=== PATIENT | female | born 1965 | race African-American/Black ===

== ENCOUNTER 2023-12-04 17:32 | Emergency (ER) | payer OTHER, SELFPAY ==
[2023-12-04 17:37] VITALS: BP 183/107
[2023-12-04 17:51] LABS: % Basophils 0.5 % (0-2); % Eosinophils 1.4 % (0-6); % Immature Granulocytes 0.2 % (0-0.5); % Lymphocytes 50.8 % (20.5-51.1); % Monocytes 4.8 % (1.7-9.3); % Neutrophils 42.3 % (42.2-75.2); Absolute Eosinophils 0.1 10^3/uL (0-0.7); Absolute Lymphocytes 3.3 10^3/uL (1.2-3.4); Absolute Monocytes 0.3 10^3/uL (0.1-0.6); Absolute Neutrophils 2.8 10^3/uL (1.4-6.5); Hematocrit 37.7 % (37.0-47.0); Mean Corp Hgb Conc. 34.5 g/dL (33.0-37.0); Mean Corpuscular Hgb 29.4 pg (27.0-31.0); Mean Corpuscular Volume 85.3 fL (81.0-99.0); Mean Platelet Volume 9.1 fL (7.4-10.4); Nucleated Red Blood Cells % 0 %; Platelet Count 333 10^3/uL (130-400); Red Blood Cell Count 4.42 10^6/uL (4.20-5.40); Red Cell Dist. Width 12.5 % (11.5-14.5); White Blood Cell Count 6.5 10^3/uL (4.8-10.8)
[2023-12-04 18:10] LABS: ALT (SGPT) 45 U/L (0-35); AST (SGOT) 63 U/L (14-36); Albumin 4.7 g/dl (3.5-5.0); Alkaline Phosphatase 88 U/L (38-126); Blood Urea Nitrogen 16 mg/dl (7-17); Calcium 9.9 mg/dl (8.4-10.2); Carbon Dioxide 31 mmol/L (22-30); Chloride 101 mmol/L (98-107); Glucose 99 mg/dl (70-99); Potassium 4.5 mmol/L (3.5-5.1); Sodium 138 mmol/L (135-145); Total Bilirubin 0.5 mg/dl (0.2-1.3); Total Protein 8.1 g/dl (6.3-8.2); eGFR > 60.00
[2023-12-04 18:15] LABS: Troponin I < 0.012 ng/ml
[2023-12-04 22:12] VITALS: BP 167/79
[2023-12-04 22:38] LABS: Troponin I < 0.012 ng/ml
--- NOTE | 2023-12-04 23:40 | ED.GENMED ---
History of Present Illness
General
Chief Complaint: Chest Pain
Source: patient and spouse
Exam Limitations: none
Time Seen by Provider: 12/04/23 20:05
Nursing documentation reviewed up to this point in time: agreed with
Travel History
Have you had any contact with someone who has COVID-19?: No
Do you have any symptoms of coronavirus? Fever > 100 degrees, chills, cough, shortness of breath, sore throat, loss of taste or smell, muscle aches, or headache?: No
History of Present Illness
History of Present Illness:
58-year-old female past medical history of GERD presenting to the emergency department today with concerns of a few weeks of intermittent chest discomfort in the central chest described as achy and pressure with some mild shortness of breath last
for few minutes at a time once or twice a day. Denies vomiting denies diaphoresis recent illness.
Review of Systems
Review of Systems
Allergies reviewed?: Yes
All Other Systems: ROS reviewed and negative except as documented in HPI and ROS
Phy Exam
Physical Exam
Physical Exam:
GENERAL: Alert , in no apparent distress
EYE: pupils equal and reactive
NECK: Supple, no significant adenopathy.
ENT: o/p clr, mmm.
CARDIAC: Regular rate and rhythm .
LUNGS: Clear breath sounds bilaterally, no acute respiratory distress, no wheezes/rales/rhonchi
ABDOMEN: Soft, without focal tenderness, no r/g, no cvat
NEUROLOGICAL: Alert and oriented, no focal neuro deficits
SKIN: Warm and dry, skin intact.
MUSCULOSKELETAL: No edema, well perfused.
PSYCH: Normal and appropriate interaction.
Scores
Heart Score for Chest Pain Patients
STEMI patient?: No
History: Slightly or Non-Suspicious
ECG: Normal
Age: >45 - <65 years
Risk Factors: No Risk Factors
Troponin: </= Normal Limit
Heart Score for Chest Pain Patients: 1
Heart Score Risk: 2.5% MACE over next 6 weeks
Course
Orders/Labs/Results
Orders:
Orders
12/04/23 17:35
Electrocardiogram (*1) Urgent
Reason for Study: Chest Pain
Electrocardiogram (*1) Urgent
Reason for Study: Chest Pain
12/04/23 17:36
EKG- Treatment ONCE
12/04/23 17:45
Complete Blood Count/With Diff Urgent
Troponin I Urgent
12/04/23 17:46
CMP [Comprehensive Metabolic Panel] Urgent
12/04/23 20:18
Chest [CR Chest - 2 Views ] Urgent
Comment:
Reason For Exam: cp
12/04/23 21:27
EKG [Electrocardiogram (*1)] Urgent
Reason for Study: Chest Pain
Other Reason for Exam: repeat
EKG- Treatment ONCE
12/04/23 22:02
Troponin I Urgent
Abnormal Lab Results
12/04/23
17:46
Carbon Dioxide 31 H mmol/L
(22-30)
AST 63 H U/L
(14-36)
ALT 45 H U/L
(0-35)
12/04/23 17:45
12/04/23 17:46
Vital Signs
Initial and Last Documented VS:
Initial Vital Signs
Temp Pulse Resp BP Pulse Ox
98.3 F 89 16 183/107 97
12/04/23 17:37 12/04/23 17:37 12/04/23 17:37 12/04/23 17:37 12/04/23 17:37
Last Documented Vital Signs
Temp Pulse Resp BP Pulse Ox
98.3 F 81 18 167/79 99
12/04/23 17:37 12/04/23 22:12 12/04/23 22:12 12/04/23 22:12 12/04/23 22:12
MDM/Problems Addressed
MDM/Problems Addressed:
58-year-old female presenting to the emergency department today with concerns of intermittent chest discomfort over the past few weeks. On arrival her blood pressure was elevated otherwise vital signs are normal. Blood pressure improving without
specific treatment. Otherwise labs here unremarkable troponin negative twice as well as EKG unchanged throughout ER stay. Nonischemic no arrhythmia. Chest x-ray without emergent findings. Patient very low risk for ACS no specific risk factors
for PE Wells score low. Otherwise stable for outpatient follow-up will follow-up close with cardiology as well as GI. Return precautions given.
*Critical Care Note
Total Time (30-74mins, 75-104mins- exclusive of procedures): Not Applicable
ED Attending Note
-
Portions of this chart may have been created with voice recognition software.� Occasional wrong word or��sound alike� substitutions may have occurred due to the inherent limitations of voice recognition software.
Discharge Plan
Departure
Patient Disposition: Home (Routine Discharge)
Date of Disposition: 12/04/23
Time of Disposition: 23:42
Patient with high blood pressure during this ER visit?: No
Condition: Good
Covid-19: Not Applicable
Discharge Problem:
Chest pain
Instructions: Chest Pain CBC Follow Up
Referrals:
Lisseth Villatoro MD [Family Provider] -
Lesley Clifford MD [Active] - Follow up in 5-7 days
Activity Restrictions/Additional Instructions:
You came to the emergency department today with concerns of chest discomfort. Here you had a reassuring evaluation. Please follow closely with cardiology. Return to the emergency department for any worsening, new or concerning symptoms.
Interventions
Interventions:
*Risk Screen - Suicide Last Done: 12/04/23 19:46
*General Assessment Last Done: 12/04/23 19:46
*Neglect/Abuse Screening Last Done: 12/04/23 19:46
ED- Fall Risk Assessment Last Done: 12/04/23 19:47
*ED COVID-19 Vaccine History Last Done: 12/04/23 17:37
ED- Cardiac Assessment Last Done: 12/04/23 19:47
== END 2023-12-04 23:49 | disposition home or self-care (01) ==
LOC: EMR 17:32
PROVIDERS: Emergency Medicine; Physician Assistant; EMERGENCY PHYSICIAN Student in an Organized Health Care Education/Training Program; FAMILY PHYSICIAN Family Medicine
DX: R07.89 Other chest pain (principal)
CPT/HCPCS: 99285; 71046; 80053; 84484; 85025; 93005

== ENCOUNTER → 2023-12-10 10:57 | Outpatient (REF) | payer OTHER, SELFPAY | LOC: RAD 10:57 | PROVIDERS: ATTENDING PHYSICIAN Otolaryngology; FAMILY PHYSICIAN Family Medicine | DX: K21.9 Gastro-esophageal reflux disease without esophagitis (principal); R13.14 Dysphagia, pharyngoesophageal phase | CPT/HCPCS: 74221 ==

== ENCOUNTER → 2024-01-03 08:27 | Outpatient (REF) | payer OTHER, SELFPAY | LOC: HWRAD 08:27 | PROVIDERS: ATTENDING PHYSICIAN Internal Medicine Critical Care Medicine; FAMILY PHYSICIAN Family Medicine | DX: R06.00 Dyspnea, unspecified (principal) | CPT/HCPCS: 71250 ==

== ENCOUNTER → 2024-01-06 14:35 | Outpatient (REF) | payer OTHER, SELFPAY | LOC: WDC 14:35 | PROVIDERS: ATTENDING PHYSICIAN Physician Assistant Surgical; FAMILY PHYSICIAN Family Medicine | DX: R92.8 Other abnormal and inconclusive findings on diagnostic imaging of breast (principal) | CPT/HCPCS: 76642 ==

== ENCOUNTER → 2024-01-10 11:08 | Outpatient (REF) | payer OTHER, SELFPAY | LOC: HWRCS 11:08 | PROVIDERS: ATTENDING PHYSICIAN Internal Medicine Critical Care Medicine; FAMILY PHYSICIAN Family Medicine | DX: R06.00 Dyspnea, unspecified (principal) | CPT/HCPCS: 93306 ==

== ENCOUNTER → 2024-01-25 18:13 | Outpatient (REF) | payer OTHER, SELFPAY | LOC: WDC 18:13 | PROVIDERS: ATTENDING PHYSICIAN Physician Assistant Surgical; FAMILY PHYSICIAN Family Medicine | DX: Z12.31 Encounter for screening mammogram for malignant neoplasm of breast (principal) | CPT/HCPCS: 77063; 77067 ==

== ENCOUNTER → 2024-02-03 | Outpatient (REF) | payer OTHER, SELFPAY | LOC: DHSLP | PROVIDERS: ATTENDING PHYSICIAN Internal Medicine Critical Care Medicine; FAMILY PHYSICIAN Family Medicine | DX: G47.33 Obstructive sleep apnea (adult) (pediatric) (principal) | CPT/HCPCS: 95800 ==

== ENCOUNTER → 2024-03-23 13:47 | Outpatient (REF) | payer OTHER, SELFPAY | LOC: HWRAD 13:47 | PROVIDERS: ATTENDING PHYSICIAN Obstetrics & Gynecology; FAMILY PHYSICIAN Family Medicine | DX: R10.2 Pelvic and perineal pain (principal) | CPT/HCPCS: 76830; 76856 ==

== ENCOUNTER → 2024-07-10 06:25 | Day surgery (SDC) | payer OTHER, SELFPAY | LOC: GI 06:25 | PROVIDERS: ATTENDING PHYSICIAN Internal Medicine Gastroenterology | DX: Z12.11 Encounter for screening for malignant neoplasm of colon (principal); K64.8 Other hemorrhoids; Q43.8 Other specified congenital malformations of intestine; K44.9 Diaphragmatic hernia without obstruction or gangrene; K22.89 Other specified disease of esophagus; K31.A0 Gastric intestinal metaplasia, unspecified; K31.89 Other diseases of stomach and duodenum; K62.1 Rectal polyp; K29.50 Unspecified chronic gastritis without bleeding | CPT/HCPCS: 43239; 45385; 88305; 88342 ==

== ENCOUNTER → 2024-07-26 14:57 | Outpatient (REF) | payer OTHER, SELFPAY | LOC: RCS 14:57 | PROVIDERS: ATTENDING PHYSICIAN Nurse Practitioner; FAMILY PHYSICIAN Family Medicine | DX: R07.89 Other chest pain (principal); R06.02 Shortness of breath; R53.83 Other fatigue | CPT/HCPCS: 93017 ==

== ENCOUNTER → 2025-01-25 18:19 | Outpatient (REF) | payer OTHER, SELFPAY | LOC: WDC 18:19 | PROVIDERS: ATTENDING PHYSICIAN Family Medicine | DX: Z12.31 Encounter for screening mammogram for malignant neoplasm of breast (principal) | CPT/HCPCS: 77063; 77067 ==

== ENCOUNTER 2025-07-23 13:14 | Emergency (ER) | payer OTHER, SELFPAY ==
[2025-07-23 13:22] VITALS: BP 154/96
[2025-07-23 13:38] LABS: Hematocrit 39.7 % (37.0-47.0); Hemoglobin 13.2 g/dL (12.0-16.0); Mean Corp Hgb Conc. 33.2 g/dL (33.0-37.0); Mean Corpuscular Volume 86.9 fL (81.0-99.0); Nucleated Red Blood Cells % 0 %; Platelet Count 309 10^3/uL (130-400); Red Cell Dist. Width 12.6 % (11.5-14.5)
[2025-07-23 14:05] LABS: ALT (SGPT) 26 U/L (0-35); AST (SGOT) 23 U/L (14-36); Albumin 4.7 g/dl (3.5-5.0); Alkaline Phosphatase 81 U/L (38-126); Blood Urea Nitrogen 13 mg/dl (7-17); Calcium 9.8 mg/dl (8.4-10.2); Carbon Dioxide 32 mmol/L (22-30); Chloride 100 mmol/L (98-107); Glucose 102 mg/dl (70-99); Potassium 4.1 mmol/L (3.5-5.1); Sodium 138 mmol/L (135-145); Total Protein 8.2 g/dl (6.3-8.2); eGFR > 60.00
[2025-07-23 14:18] LABS: Troponin I < 0.012 ng/ml
--- NOTE | 2025-07-23 15:40 | ED.GENMED ---
History of Present Illness
General
Chief Complaint: Chest Pain
Source: patient and spouse
Time Seen by Provider: 07/23/25 15:27
History of Present Illness
History of Present Illness:
This patient is a 59-year-old female presents emergency department complaints of discomfort in the center part of her chest that sometimes radiates to the right side of her neck associated with upper back pain. This has been happening on and off
since Wednesday. She states that when her massage the area her symptoms went away. She notes associated mild dyspnea. She used her inhaler without relief of symptoms. Since this began, she has had episodes that come and go. When she woke
up this morning she felt perfectly well, but then the symptoms returned and she called her primary care doctor and was referred to the emergency department. Patient has had similar symptoms in the past, workup unremarkable. Patient denies history
of recent immobilization, recent trauma, smoking history, leg swelling, history of DVT or PE.
Past History
Past History
ED Past Medical History: HTN and Other (Arthritis, asthma)
ED Past Surgical History: Gynecological
Social History
Tobacco: Non-smoker
Alcohol: Occasional
Drug: None
Personal:
Living: with family
Phy Exam
Physical Exam
Physical Exam:
GENERAL: Alert , in no apparent distress
EYE: pupils equal and reactive
NECK: Supple, no significant adenopathy.
ENT: o/p clr, mmm.
CARDIAC: Regular rate and rhythm .
LUNGS: Clear breath sounds bilaterally, no acute respiratory distress, no wheezes/rales/rhonchi
ABDOMEN: Soft, without focal tenderness, no r/g, no cvat
NEUROLOGICAL: Alert and oriented, no focal neuro deficits
SKIN: Warm and dry, skin intact.
MUSCULOSKELETAL: No edema, well perfused, negative home.
PSYCH: Normal and appropriate interaction.
Course
Orders/Labs/Results
Orders:
Orders
07/23/25 13:15
Electrocardiogram (*1) Urgent
Reason for Study: Chest Pain
EKG- Treatment ONCE
07/23/25 13:31
CMP [Comprehensive Metabolic Panel] Urgent
Complete Blood Count/With Diff Urgent
Troponin I Urgent
07/23/25 15:42
D-Dimer Urgent
07/23/25 16:29
CT Chest PE Study Urgent
Comment:
Reason For Exam: chest/back pain, ?dissection vs pe
07/23/25 16:32
Troponin I Urgent
Abnormal Lab Results
07/23/25 07/23/25
13:31 15:42
D-Dimer 1.19 H ug/mlFEU
(0.00-0.50)
Carbon Dioxide 32 H mmol/L
(22-30)
Glucose 102 H mg/dl
(70-99)
07/23/25 13:31
07/23/25 13:31
Vital Signs
Initial and Last Documented VS:
Initial Vital Signs
Temp Pulse Resp BP Pulse Ox
98.5 F 83 16 154/96 98
07/23/25 13:22 07/23/25 13:22 07/23/25 13:22 07/23/25 13:22 07/23/25 13:22
Last Documented Vital Signs
Temp Pulse Resp BP Pulse Ox
98.5 F 84 16 148/82 100
07/23/25 13:22 07/23/25 18:15 07/23/25 18:15 07/23/25 18:15 07/23/25 18:15
*Pulse Oximetry
SaO2: 98
Oxygen Mode of Delivery: Room air
Update Note
Update Note:
Patient presents to the Emergency Department with ___chest pain back pain neck pain did
Number and Complexity of Problems Addressed at the Encounter
� Chronic conditions affecting care:
� Acute Exacerbation and/or Progression of Chronic Illness:
� Differential Diagnosis includes: But not limited to ACS, PE, pleurisy, pericarditis, aortic dissection, musculoskeletal pain, anxiety, etc. etc.
Amount and/or Complexity of Data to be Reviewed and Analyzed
� I performed an independent evaluation of and my interpretation is:
EKG: Read by me, normal sinus rhythm, normal rate, normal axis, no acute ischemia
CT:No evidence of pulmonary embolism.
Pulmonary artery branching order level of the most proximal pulmonary embolism: N/A
No aortic aneurysm or dissection.
No active pulmonary disease.
No compression deformity. Multilevel minor degenerative disc space narrowing with minimal endplate spurring. Endplate cortical margins appear intact without bony destruction or evidence to suggest osteomyelitis.
Xrays:
Laboratory Studies: Troponin unremarkable, D-dimer pending
Other:
� Review of other/old records reveals:
� Clinical information was obtained by an independent historian: who is bedside
� Prescriptions/Medications Considered but not given:
� Further testing considered but not performed:
Risk of Complications and/or Morbidity or Mortality of Patient Management
� Social determinants of health affecting care:
� Discussion with other providers (PCP, Hospitalists, Consultants, etc):
� Escalation of care including admission/observation vs risk of discharge considered: Patient remained stable here, eager to be discharged. Low clinical suspicion for PE, dissection, ACS, etc. given workup here. Will be given
copy of CT report for further follow-up.
ED Attending Note
-
Portions of this chart may have been created with voice recognition software.� Occasional wrong word or��sound alike� substitutions may have occurred due to the inherent limitations of voice recognition software.
Discharge Plan
Departure
Patient Disposition: Home (Routine Discharge)
Date of Disposition: 07/23/25
Time of Disposition: 18:44
Patient with high blood pressure during this ER visit?: Yes
Condition: Good
Discharge Problem:
Chest pain
Instructions: Chest Pain PCP Follow Up, BLOOD PRESSURE
Referrals:
Lisseth Villatoro MD [Family Provider, Family Practice]
Activity Restrictions/Additional Instructions:
PLEASE SEE ATTACHED CAT SCAN FOR FINDINGS THAT REQUIRE CLOSE FOLLOW-UP. IF YOU DEVELOP FEVER, REPEATED VOMITING, INCREASING OR NEW CHEST PAIN, INCREASING OR PERSISTENT SHORTNESS OF BREATH, NUMBNESS, SWELLING, OR OTHER WORRISOME SIGNS, PLEASE RETURN
TO THE ER IMMEDIATELY !
Interventions
Interventions:
*Risk Screen - Suicide Last Done: 07/23/25 13:22
*General Assessment Last Done: 07/23/25 13:22
ED- Cardiac Assessment Last Done: 07/23/25 15:47
Discharge Date and Time
Print Language: FIJIAN
[2025-07-23 16:11] LABS: D-Dimer 1.19 ug/mlFEU (0.00-0.50)
[2025-07-23 17:13] LABS: Troponin I < 0.012 ng/ml
[2025-07-23 18:15] VITALS: BP 148/82
== END 2025-07-23 19:09 | disposition home or self-care (01) ==
LOC: EMR 13:14
PROVIDERS: Emergency Medicine; EMERGENCY PHYSICIAN Emergency Medicine; FAMILY PHYSICIAN Family Medicine
DX: R07.9 Chest pain, unspecified (principal); I10 Essential (primary) hypertension; J45.909 Unspecified asthma, uncomplicated; M19.90 Unspecified osteoarthritis, unspecified site
CPT/HCPCS: 99284; 71275; 80053; 84484; 85025; 85379; 93005; Q9967

== ENCOUNTER → 2025-08-15 09:19 | Outpatient (REF) | payer OTHER, SELFPAY | LOC: HWRAD 09:19 | PROVIDERS: ATTENDING PHYSICIAN Family Medicine | DX: R10.13 Epigastric pain (principal) | CPT/HCPCS: 76700 ==